=== PATIENT | male | born 1945 | race Caucasian/White ===

== ENCOUNTER 2017-11-23 10:30 | Emergency (ER) | payer MEDICARE, OTHER ==
--- NOTE | 2017-11-23 10:53 | ED Physician Documentation ---
General Adult - HISTORIAN Historian: patient - HPI Stated Complaint: Sore Throat, shaking this am Chief Complaint: General Adult Onset: other (chronic sore throat) Timing: better Severity: moderate Further Comments: yes (Pt is a 72 yo male brought to ER by his daughter. Pt has worked as a footwear sales associate and now "lives in his car" according to his daughter, though he stays with her at least once a month. Pt c/o chronic sore throat that he has had for years. Daughter says that this am pt appeared pale and was shaking. Pt appears possibly eccentric, stating that he has no pain, that he had no pain or sob this am, and now feels well. 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 Pt is a heavy smoker. Pt has hx hernia repair and back surgery several years ago, after which he lost weight. Pt was rx Gabapentin after back surgery, and takes Gabapentin from time to time for back pain. He has not refilled his rx, but still uses what is left from his original rx's and takes janene only occasionally.) - ROS CONST: other (Pt denies problems) - PAST HX Past History: other (hernia repair, back surgery) Allergies/Adverse Reactions: Allergies Allergy/AdvReac Type Severity Reaction Status Date / Time No Known Drug Allergies Allergy Verified 11/23/17 11:07 Home Medications: Ambulatory Orders Medication Instructions Recorded NK [NK] 11/23/17 - SOCIAL HX Smoking History: greater than 1 pack/day Alcohol Use: none Drug Use: none - FAMILY HX Family History: No - VITAL SIGNS Vital Signs: Vital Signs Temp Pulse Resp BP Pulse Ox 97.8 F 87 19 171/89 94 11/23/17 10:39 11/23/17 10:39 11/23/17 10:39 11/23/17 10:39 11/23/17 10:39 - REVIEWED ASSESSMENTS Nursing Assessment Reviewed: Yes Vitals Reviewed: Yes Progress - Progress Progress: Pt is to f/u with pcp next week. Recommend trial of Pepcid for chronic throat irritation lasting > 1 yr. Pt declines web content & social media manager consult. - EKG/XRAY/CT EKG: NSR (HR=72; RAD) XRAY: chest (no acute process) General Adult Physical Exam - PHYSICAL EXAM GENERAL APPEARANCE: no distress EENT: pharynx normal NECK: normal inspection, supple RESPIRATORY: no resp distress, chest non-tender, breath sounds normal CVS: reg rate & rhythm, heart sounds normal ABDOMEN: soft, no organomegaly, normal bowel sounds BACK: normal inspection, no CVA tenderness SKIN: warm/dry, normal color EXTREMITIES: non-tender, normal range of motion, no evidence of injury, no edema NEURO: oriented X3, motor nml, sensation nml Discharge Clincal Impression: Chronic sore throat, transient weakness this am Referrals: Primary Doctor,No [Primary Care Provider] - Condition: Stable Disposition: 01 HOME, SELF-CARE Decision to Admit: NO Decision Time: 11:57
[2017-11-23 11:05] LABS: BASOPHILS % 0.2 (0.0-1.5); EOSINOPHILS % 1.4 % (0.0-6.8); MEAN CORPUSCULAR HEMOGLOBIN 28.7 pg (28.0-34.0); MEAN CORPUSCULAR VOLUME 85.1 fl (80.0-100.0); MONOCYTES % 3.1 % (0.0-11.0); NEUTROPHILS # 4.2 # k/uL (1.4-7.7)
[2017-11-23 11:19] LABS: eGFR (African) > 60; eGFR (Non-African) > 60
--- NOTE | 2017-11-23 12:14 | Diagnostic Imaging Report ---
SABRINA DAUGHERTY [facility] [id number] [facility]ly [facility], [facility] [address] [place] [address]. [id number] Report Submission Date: Nov 23, 2017 11:45:41 AM ACCOUNT SUPPORT ANALYST Patient Study Name: NESTOR SINGLETON Date: Nov 23, 2017 11:24:23 AM ACCOUNT SUPPORT ANALYST Modality Type: CR Gender: M Description: CHEST : 41 Institution: [facility] Physician: SABRINA DAUGHERTY Examination: PA and lateral chest. History: Evaluate lung fernández. Comparison exam: None provided Findings: PA lateral chest demonstrate a normal cardiac and mediastinal silhouette. Tortuous aorta with vascular calcifications involving the aortic arch. No focal infiltrate. No blunting of the costophrenic margins. Osseous structures are appropriate for age. Impression: No acute pulmonary process. Electronically signed on Nov 23, 2017 11:45:41 AM ACCOUNT SUPPORT ANALYST by: Jones CHAUDHRY
[2017-11-23 12:50] VITALS: BP 139/84
== END 2017-11-23 12:48 | disposition home or self-care (01) ==
LOC: ED 10:30
DX: J31.2 Chronic pharyngitis (principal); M79.603 Pain in arm, unspecified; Z59.0 Homelessness
CPT/HCPCS: 71020; 80053; 82550; 82553; 84484; 85025; 99283